=== PATIENT | female | born 1985 | race Caucasian/White ===

== ENCOUNTER 2016-06-04 19:01 | Emergency (ER) | payer OTHER ==
[~2016-06-04] VITALS: Ht 165.1 cm; Wt 63.6 kg
[~2016-06-04 19:01] MED LIST: ALDACTONE50 MG PO; AMOXICILLIN 50500 MG PO; AMOXICILLIN875 MG PO; COREG3.125 MG PO; COREG6.25 MG PO; LABETALOL100 MG PO; LANOXIN0.25 MG PO; LASIX20 MG PO; LISINOPRIL10 MG PO; NATURE'S BLEND F1 MG PO; NO HOME MEDICATIONS; NORCO 325 MG-51 TAB PO; PHENERGAN 25 TA25 MG PO; PRENATAL1 TA1 PO; TYLENOL 325MG325 MG PO; VITAMIN D1000 IU PO; ZESTRIL 20MG TA20 MG PO; ZITHROMAX Z PA250 MG PO; ZOFRAN 4MG T4 MG/TAB PO
[2016-06-04 19:03] VITALS: TEMP 98.8
[2016-06-04] MEDS ORDERED: VASOTEC 10M10 MG/TAB PO (19:25)
[2016-06-04 19:54] VITALS: BP 101/54; PULSE 84
== END 2016-06-04 19:55 | disposition home or self-care (01) ==
LOC: COL.ER 19:01
DX: S93.602A Unspecified sprain of left foot, initial encounter (principal); W00.0XXA Fall on same level due to ice and snow, initial encounter

== ENCOUNTER 2018-03-18 11:04 | Day surgery (SDC) | payer OTHER ==
[~2018-03-18] VITALS: Ht 165.1 cm; Wt 77.2 kg
[2018-03-18] VITALS (9 sets, daily range): BP systolic 112–129; BP diastolic 68–88; PULSE 69–96; TEMP 98.1–98.3
[~2018-03-18 11:04] MED LIST changes: +VASOTEC 10M10 MG/TAB PO
[2018-03-18] MEDS ORDERED: MOTRIN 800800 MG/TAB PO (14:30)
[2018-03-18] MEDS ORDERED: PERCOCET 325 MG1 TA2 PO (14:30)
== END 2018-03-18 20:25 | disposition home or self-care (01) ==
LOC: SDCO 11:04 → OB 15:35 → SDCO 20:25
DX: N92.0 Excessive and frequent menstruation with regular cycle (principal); D25.2 Subserosal leiomyoma of uterus; N80.1 Endometriosis of ovary; N83.8 Other noninflammatory disorders of ovary, fallopian tube and broad ligament; N73.6 Female pelvic peritoneal adhesions (postinfective); I10 Essential (primary) hypertension; F32.9 Major depressive disorder, single episode, unspecified; Z82.49 Family history of ischemic heart disease and other diseases of the circulatory system; F17.210 Nicotine dependence, cigarettes, uncomplicated; F41.9 Anxiety disorder, unspecified
CPT/HCPCS: OP; A4314; J0690; J1100; J1170; J1885; J2405; J2550; J2704; J2710; J3010; J7120

== ENCOUNTER → 2022-01-12 | Outpatient (CLI) | payer SELFPAY ==
[~2022-01-12] MED LIST changes: +MOTRIN 800800 MG/TAB PO; +PERCOCET 325 MG1 TA2 PO
== END ==
LOC: COL.LAB 12:07
DX: I50.22 Chronic systolic (congestive) heart failure (principal)